=== PATIENT | female | born 1950 | race Caucasian/White ===

== ENCOUNTER 2018-12-13 06:56 | Day surgery (SDC) | payer OTHER ==
--- OUTSIDE RECORDS SUMMARY | 2018-12-13 06:59 | XMS REPORT ---
:1950 [facility] Organization [facility] Address [address] [place] [address] Dr. Knight [address] [place] [id number] Care Team Providers Name Role Phone Unavailable Unavailable Unavailable Problems This patient has no known problems. Allergies, Adverse Reactions, Alerts This patient has no known allergies or adverse reactions. Medications This patient has no known medications.
[2018-12-13] MEDS ORDERED: PROPOFOL 200 MG/20 ML VIAL IV ONE (07:15)
[2018-12-13] MEDS ORDERED: MIDAZOLAM HCL 2 MG/2 ML INJ ONE (07:15)
[2018-12-13] MEDS ORDERED: LIDOCAINE 2% MPF 5 ML VIAL ONE (07:15)
[2018-12-13] MEDS ORDERED: FENTANYL CITR 100 MCG/2 ML ONE (07:15)
[2018-12-13] MEDS ORDERED: NA CHLORIDE 0.9% 1,000 ML ONE (07:16)
[2018-12-13] MEDS ORDERED: LIDOCAINE 1.5% W/EPI AMP 5 ML ONE (07:16)
[2018-12-13] MEDS ORDERED: Ringers Lactate 1,000 ML IV ONE (07:55)
[2018-12-13] MEDS ORDERED: KETOROLAC 30 MG/ML INJ ONE (09:13)
--- NOTE | 2018-12-13 18:05 | OP ---
Date of Procedure: 12/12/2018 Surgeon: Chey Luther MD Preoperative Diagnoses: Thickened endometrium, right lower quadrant pain, personal history of colon cancer. Postoperative Diagnoses: Thickened endometrium, right lower quadrant pain, personal history of colon cancer. Procedures Performed: Hysteroscopy, and D and C with Symphion device. Anesthesia: General with LMA. Specimens: Endometrial curettings. Complications: None. Drains: None. Condition: Stable. Findings: No intracavitary mass was seen. There were no distortions. The endometrium appeared to b e slightly thickened and vascular. Both tubal ostia were well visualized and unremarkable mostly atr ophic other than the few areas of vascularity which could be from atrophy. Description Of Procedure: After informed consent was verified, the patient was taken back to the OR, placed in a supine fashion on the operating table after general anesthesia was given with LMA. The patient was placed in a dorsal lithotomy position and pelvic exam was performed. Prep x3 with Betadi ne was done. Speculum was placed to expose the cervix. Anterior lip was grasped with 2 Allis clamps . A SlimLine diagnostic hysteroscope was used with a 30-degree lens and normal saline for performing a direct hysteroscopy through the cervical canal into the uterine cavity. The cavity appeared to be unremarkable. However, it seemed like it would be difficult to biopsy adequately her lining and the refore the decision was made to get the Symphion device for the biopsy. Once Symphion device was primed, the working element was inserted. Mean arterial pressures being at 77, the set pressure was at 80, which was then increased to 90 mmHg for performing the procedure. With the help of the device, all 4 blanco of the uterus were adequately sampled after ensuring that th ere was adequate tissue for pathology. Then, the scope was removed along with the working element. EBL was minimal. The patient tolerated the procedure well. Instruments were removed. Instrument, n eedle, and sponge counts were done and were correct at the end of the case. The patient tolerated th e procedure well. EBL minimal. The patient will follow up with me in 1 week for results. RAFAELA/WILLIE Voice ID: [id number] Report ID: [id number]
== END 2018-12-13 10:50 | disposition home or self-care (01) ==
LOC: OR 06:56
PROVIDERS: ATTEND Obstetrics & Gynecology
PROC: 0UJD8ZZ Inspection of Uterus and Cervix, Via Natural or Artificial Opening Endoscopic (ICD-10-PCS; 2018-12-13)
PROC: 0UDB7ZX Extraction of Endometrium, Via Natural or Artificial Opening, Diagnostic (ICD-10-PCS; principal; 2018-12-13 08:00)
DX: N85.8 Other specified noninflammatory disorders of uterus (principal); N85.00 Endometrial hyperplasia, unspecified; E78.5 Hyperlipidemia, unspecified; I10 Essential (primary) hypertension; Z79.899 Other long term (current) drug therapy; Z85.038 Personal history of other malignant neoplasm of large intestine; Z80.49 Family history of malignant neoplasm of other genital organs
CPT/HCPCS: 88305; 58558; J2704; J2250; J3010; J7030; J2001